=== PATIENT | female | born 1940 | race Two or more races ===

== ENCOUNTER 2023-12-09 12:02 | Inpatient (IN) | payer MEDICARE, MEDICAID ==
[~2023-12-09] VITALS: Ht 162.6 cm; Wt 47.6 kg
[2023-12-09 12:04] VITALS: O2SAT 99
[2023-12-09 12:46] LABS: BASOPHILS % 0.2 % (0.0-2.0); HEMATOCRIT. 47.5 % (36.0-48.0); HEMOGLOBIN. 15.7 g/dL (12.0-16.0); LYMPHOCYTES % 18.4 % (20.0-50.0); MEAN CORPUSCULAR HEMOGLOBIN 27.9 pg (28.0-32.0); MEAN CORPUSCULAR HGB CONC 33.1 g/dL (31.0-37.0); MEAN CORPUSCULAR VOLUME 84.3 fL (81.0-99.0); MEAN PLATELET VOLUME 8.2 fl (7.4-10.4); MONOCYTES % 2.8 % (2.0-8.0); NEUTROPHILS % 78.6 % (40.0-76.0); PLATELET 320 x1000/uL (130-400); RED BLOOD CELL COUNT 5.63 mill/uL (4.2-5.4); RED CELL DISTRIBUTION WIDTH 14.1 % (11.6-14.6); WHITE BLOOD COUNT 9.8 x1000/uL (4.5-11.0)
[2023-12-09 13:00] LABS: ALANINE AMINOTRANSFERASE 18 IU/L (10-49); ALBUMIN 5.4 g/dL (3.2-4.8); ASPARTATE AMINOTRANSFERASE 31 IU/L (<34); BILIRUBIN TOTAL 0.6 mg/dL (0.1-1.0); CALCIUM 11.5 mg/dL (8.7-10.4); CARBON DIOXIDE 23 mEq/L (21-32); CHLORIDE 98 mEq/L (98-107); CREATININE 1.1 mg/dL (0.6-1.0); GLUCOSE 268 mg/dL (70-105); POTASSIUM 3.8 mEq/L (3.5-5.1); PROTEIN TOTAL 8.4 g/dL (6.0-8.3); SODIUM 135 mEq/L (136-145); TROPONIN I HIGH SENSITIVITY 5 ng/L (3.0-34); UREA NITROGEN BLOOD 26 mg/dL (9-23)
[2023-12-09] MEDS: MORPHINE SULFATE 4 MG/ML INJ (FOR IV/IM USE) IV STA (13:50)
[2023-12-09] MEDS: FAMOTIDINE 20MG/2ML VIAL IV STA (13:50)
[2023-12-09] MEDS: SODIUM CHLORIDE 0.9% 500 ML IV ONE ×2 (13:50→20:57)
[2023-12-09] MEDS: ONDANSETRON HCL 4MG/2ML INJ IV STA (13:51)
[2023-12-09 14:57] LABS: PROTHROMBIN TIME 11.6 sec (9.6-11.0)
[2023-12-09 15:03] LABS: TROPONIN I HIGH SENSITIVITY 6 ng/L (3.0-34)
[2023-12-09] MEDS: MORPHINE SULFATE 2 MG/ML CPJ (NOT FOR IM USE) IV ONE (17:10)
[2023-12-09] MEDS: DEXT 5%/0.45% NACL 1000ML 1,000 ML IV SCH (17:21)
[2023-12-09 18:39] LABS: BG BASE EXCESS -13.2 mmol/L (-2.0-2.0); BG CARBOXYHEMOGLOBIN 0.5 % (0.5-1.5); BG DEOXYHEMOGLOBIN 5.3 % (0.0-5.0); BG FRACTION INSPIRED OXYGEN 40; BG HCO3 ACT 14.3 mmol/L (22.0-26.0); BG METHEMOGLOBIN 0.4 % (0.0-1.5); BG OXYGEN SATURATION 94.7 % (92.0-98.5); BG OXYHEMOGLOBIN 93.8 % (94.0-97.0); BG PCO2 38.8 mmHg (35.0-45.0); BG PH 7.185 (7.350-7.450); BG PO2 88.6 mmHg (75.0-100.0); BG SAMPLE SITE RIGHT BRACHIAL; BG TOTAL HEMOGLOBIN 16.5 g/dL (12.0-18.0); BG VENT MODE MASK - SIMPLE
[2023-12-09] MEDS: SODIUM BICARBONATE 8.4% 1 MEQ/ML 50ML SYR IV NR (19:25)
[2023-12-09] MEDS ORDERED: NOREPINEPHRINE 8MG/250ML PMX 250 ML IV ONE (20:30)
[2023-12-09] MEDS: NOREPINEPHRINE 8MG/250ML PMX 250ML IV PRN (20:57)
[2023-12-09] MEDS: MORPHINE SULFATE 2 MG/ML CPJ (NOT FOR IM USE) IV PRN (21:37)
[2023-12-09 23:12] LABS: ALANINE AMINOTRANSFERASE 13 IU/L (10-49); ALBUMIN 3.5 g/dL (3.2-4.8); ASPARTATE AMINOTRANSFERASE 34 IU/L (<34); BILIRUBIN TOTAL 0.3 mg/dL (0.1-1.0); CALCIUM 8.6 mg/dL (8.7-10.4); CARBON DIOXIDE 15 mEq/L (21-32); CHLORIDE 111 mEq/L (98-107); GLUCOSE 216 mg/dL (70-105); POTASSIUM 3.6 mEq/L (3.5-5.1); PROTEIN TOTAL 6.2 g/dL (6.0-8.3); SODIUM 143 mEq/L (136-145); UREA NITROGEN BLOOD 35 mg/dL (9-23)
[2023-12-09 23:13] LABS: CREATININE 1.7 mg/dL (0.6-1.0)
[2023-12-09] MEDS ORDERED: SODIUM CHLORIDE 0.9% 1,000 ML IV SCH (23:30)
[2023-12-09 23:34] LABS: BASOPHILS % 0.2 % (0.0-2.0); EOSINOPHILS % 0.4 % (0.0-5.0); HEMATOCRIT. 49.8 % (36.0-48.0); HEMOGLOBIN. 15.2 g/dL (12.0-16.0); LYMPHOCYTES % 31.9 % (20.0-50.0); MEAN CORPUSCULAR HEMOGLOBIN 27.5 pg (28.0-32.0); MEAN CORPUSCULAR HGB CONC 30.6 g/dL (31.0-37.0); MEAN CORPUSCULAR VOLUME 89.9 fL (81.0-99.0); MONOCYTES % 6.1 % (2.0-8.0); NEUTROPHILS % 61.4 % (40.0-76.0); RED BLOOD CELL COUNT 5.54 mill/uL (4.2-5.4); RED CELL DISTRIBUTION WIDTH 15.3 % (11.6-14.6); WHITE BLOOD COUNT 2.9 x1000/uL (4.5-11.0)
[2023-12-09 23:46] LABS: DIFFERENTIAL COMMENT 1
[2023-12-09] MEDS: PANTOPRAZOLE SODIUM 40 MG/VIAL IV SCH (23:50)
[2023-12-10] VITALS (52 sets, daily range): BP systolic 55–154; BP diastolic 18–98; PULSE 80–125; RESP 15–51; TEMP 92–97.5
[2023-12-10 00:31] LABS: MEAN PLATELET VOLUME 8.5 fl (7.4-10.4); PLATELET 190 x1000/uL (130-400)
[2023-12-10] MEDS: SODIUM BICARBONATE 150 MEQ in SODIUM CHLORIDE 0.45% 1,000 ML IV SCH ×2 (01:30→11:37)
[2023-12-10] MEDS: MORPHINE SULFATE 2 MG/ML CPJ (NOT FOR IM USE) IV PRN (01:43)
[2023-12-10] MEDS ORDERED: MORPHINE SULFATE 2 MG/ML CPJ (NOT FOR IM USE) IV PRN (03:30)
[2023-12-10 04:48] LABS: BASOPHILS % 0.4 % (0.0-2.0); EOSINOPHILS % 1.1 % (0.0-5.0); HEMATOCRIT. 46.9 % (36.0-48.0); HEMOGLOBIN. 14.8 g/dL (12.0-16.0); LYMPHOCYTES % 41.3 % (20.0-50.0); MEAN CORPUSCULAR HEMOGLOBIN 27.6 pg (28.0-32.0); MEAN CORPUSCULAR HGB CONC 31.4 g/dL (31.0-37.0); MEAN CORPUSCULAR VOLUME 87.9 fL (81.0-99.0); MEAN PLATELET VOLUME 8.9 fl (7.4-10.4); MONOCYTES % 8.2 % (2.0-8.0); PLATELET 195 x1000/uL (130-400); RED BLOOD CELL COUNT 5.34 mill/uL (4.2-5.4); RED CELL DISTRIBUTION WIDTH 15.2 % (11.6-14.6); WHITE BLOOD COUNT 2.8 x1000/uL (4.5-11.0)
[2023-12-10 05:05] LABS: CALCIUM 8.5 mg/dL (8.7-10.4); CARBON DIOXIDE 15 mEq/L (21-32); CHLORIDE 113 mEq/L (98-107); CREATININE 1.8 mg/dL (0.6-1.0); GLUCOSE 144 mg/dL (70-105); PHOSPHORUS 3.8 mg/dL (2.5-4.9); POTASSIUM 3.6 mEq/L (3.5-5.1); SODIUM 145 mEq/L (136-145); UREA NITROGEN BLOOD 35 mg/dL (9-23)
[2023-12-10] MEDS ORDERED: MORPHINE SULFATE 4 MG/ML INJ (FOR IV/IM USE) IV PRN (07:00)
[2023-12-10] MEDS: INSULIN LISPRO 100 UNITS/ML SUBCUT SCH (07:32)
[2023-12-10] MEDS: BLOOD SUGAR DIAGNOSTIC STRIP TEST SCH (07:57)
[2023-12-10 08:18] LABS: BG BASE EXCESS -10.4 mmol/L (-2.0-2.0); BG CARBOXYHEMOGLOBIN 0.6 % (0.5-1.5); BG DEOXYHEMOGLOBIN 6.2 % (0.0-5.0); BG FRACTION INSPIRED OXYGEN 100; BG HCO3 ACT 15.5 mmol/L (22.0-26.0); BG METHEMOGLOBIN 0.3 % (0.0-1.5); BG OXYGEN SATURATION 93.7 % (92.0-98.5); BG OXYHEMOGLOBIN 92.9 % (94.0-97.0); BG PCO2 34.6 mmHg (35.0-45.0); BG PH 7.268 (7.350-7.450); BG PO2 74.1 mmHg (75.0-100.0); BG SAMPLE SITE LEFT RADIAL; BG TOTAL HEMOGLOBIN 15.9 g/dL (12.0-18.0); BG VENT MODE MASK - NRB
[2023-12-10] MEDS ORDERED: LIDOCAINE HCL 1% 10 MG/ML 10ML VIAL ONE (08:38)
[2023-12-10] MEDS ORDERED: PHENYLEPHRINE 50MG/250ML PMX 250 ML IV PRN (08:45)
[2023-12-10] MEDS: MIDODRINE HCL 5MG TABLET PO SCH (09:00)
[2023-12-10] MEDS ORDERED: BUPIVACAINE HCL/PF 0.5% (5MG/ML) 10ML ONE (09:51)
[2023-12-10] MEDS: ALBUMIN HUMAN 12.5G/250ML (5%) IV SCH (09:51)
[2023-12-10] MEDS: NOREPINEPHRINE 32 MG in DEXT 5% WATER 218 ML IV PRN (10:13)
[2023-12-10] MEDS: PIPERACILLIN/TAZO 3.375G/50ML 50 ML IV SCH (10:13)
[2023-12-10] MEDS: ONDANSETRON HCL 4MG/2ML INJ IV PRN (10:13)
[2023-12-10] MEDS: VASOPRESSIN 20 UNIT in SODIUM CHLORIDE 0.9% 99 ML IV PRN (10:14)
[2023-12-10] MEDS: SODIUM CHLORIDE 0.9% 500 ML IV SCH (10:15)
[2023-12-10 10:42] LABS: LACTIC ACID 9.2 mmol/L (0.4-2.0)
[2023-12-10] MEDS ORDERED: ALBUMIN HUMAN 12.5G/250ML (5%) IV ONE (11:48)
[2023-12-10] MEDS: PHENYLEPHRINE 50MG/250ML PMX 250 ML IV PRN (13:06)
[2023-12-10] MEDS ORDERED: ETOMIDATE 2MG/ML 10ML VIAL IV ONE (13:17)
[2023-12-10] MEDS ORDERED: ONDANSETRON HCL 4MG/2ML INJ ONE (13:22)
[2023-12-10] MEDS ORDERED: SUCCINYLCHOLINE CHLORIDE 200MG/10ML IV ONE (13:22)
[2023-12-10 14:18] LABS: BG BASE EXCESS -12.9 mmol/L (-2.0-2.0); BG CARBOXYHEMOGLOBIN 0.3 % (0.5-1.5); BG FRACTION INSPIRED OXYGEN 100; BG HCO3 ACT 16.5 mmol/L (22.0-26.0); BG METHEMOGLOBIN 0.3 % (0.0-1.5); BG OXYGEN SATURATION 77.9 % (92.0-98.5); BG OXYHEMOGLOBIN 77.4 % (94.0-97.0); BG PCO2 55.2 mmHg (35.0-45.0); BG PH 7.093 (7.350-7.450); BG PO2 54.3 mmHg (75.0-100.0); BG SAMPLE SITE RIGHT RADIAL; BG TOTAL HEMOGLOBIN 9.7 g/dL (12.0-18.0); BG VENT MODE VENT - AC
[2023-12-10] MEDS: HYDROCORTISONE SOD SUCCINATE 100 MG/2 ML VIAL IV NR (14:41)
[2023-12-10] MEDS: EPINEPHRINE 10 MG in SODIUM CHLORIDE 0.9% 240 ML IV PRN (14:42)
[2023-12-10] MEDS: SODIUM BICARBONATE 8.4% 1 MEQ/ML 50ML SYR IV NR ×2 (15:24→18:18)
[2023-12-10] MEDS: DEXTROSE 50% WATER 50ML SYRINGE IV PRN (16:23)
[2023-12-10 17:14] LABS: BG BASE EXCESS -15.9 mmol/L (-2.0-2.0); BG CARBOXYHEMOGLOBIN 0.3 % (0.5-1.5); BG DEOXYHEMOGLOBIN 21.8 % (0.0-5.0); BG FRACTION INSPIRED OXYGEN 100; BG HCO3 ACT 12.6 mmol/L (22.0-26.0); BG METHEMOGLOBIN 0.4 % (0.0-1.5); BG OXYHEMOGLOBIN 77.5 % (94.0-97.0); BG PCO2 41.7 mmHg (35.0-45.0); BG PH 7.097 (7.350-7.450); BG PO2 57.2 mmHg (75.0-100.0); BG SAMPLE SITE ALINE; BG TOTAL HEMOGLOBIN 7.3 g/dL (12.0-18.0); BG TOTAL RESPIRATORY RATE 36 b/min; BG VENT MODE VENT - AC
[2023-12-10] MEDS: DOPAMINE 800MG PREMIX (DOUBLE) 250 ML IV PRN (17:15)
[2023-12-10] MEDS ORDERED: HYDROCORTISONE SOD SUCCINATE 100 MG/2 ML VIAL IV SCH (22:00)
== END 2023-12-10 22:05 | DRG 871 ==
LOC: ER 12:02 → MICUSO 15:27 → EDBEDREQSVC 15:32 → EDBEDREQ 15:32 → EDBEDREQSVC 21:40
PROVIDERS: ADMIT Internal Medicine; ATTEND Internal Medicine
PROC: 5A12012 Performance of Cardiac Output, Single, Manual (ICD-10-PCS; principal; 2023-12-10)
PROC: 02HV33Z Insertion of Infusion Device into Superior Vena Cava, Percutaneous Approach (ICD-10-PCS; 2023-12-10)
PROC: B548ZZA Ultrasonography of Superior Vena Cava, Guidance (ICD-10-PCS; 2023-12-10)
PROC: 5A0935A Assistance with Respiratory Ventilation, Less than 24 Consecutive Hours, High Flow/Velocity Cannula (ICD-10-PCS; 2023-12-10)
PROC: 5A1935Z Respiratory Ventilation, Less than 24 Consecutive Hours (ICD-10-PCS; 2023-12-10)
PROC: 0BH17EZ Insertion of Endotracheal Airway into Trachea, Via Natural or Artificial Opening (ICD-10-PCS; 2023-12-10)
DX: A41.9 Sepsis, unspecified organism (principal); G93.41 Metabolic encephalopathy; J96.01 Acute respiratory failure with hypoxia; R65.21 Severe sepsis with septic shock; E87.20 Acidosis, unspecified; K56.609 Unspecified intestinal obstruction, unspecified as to partial versus complete obstruction; K55.9 Vascular disorder of intestine, unspecified; N17.9 Acute kidney failure, unspecified; I46.9 Cardiac arrest, cause unspecified; D72.819 Decreased white blood cell count, unspecified; E83.42 Hypomagnesemia; E86.1 Hypovolemia; R47.1 Dysarthria and anarthria; E11.9 Type 2 diabetes mellitus without complications; E78.00 Pure hypercholesterolemia, unspecified; Z87.19 Personal history of other diseases of the digestive system; Z82.41 Family history of sudden cardiac death; Z90.710 Acquired absence of both cervix and uterus
CPT/HCPCS: 31500; 36415; 36573; 36600; 71045; 74018; 74176; 76705; 80048; 80053; 82375; 82805; 82962; 83036; 83605; 83735; 84100; 84145; 84484; 85025; 87077; 87186; 93005; 94002; 99291; C1725; C9113; J0330; J1265; J1720; J2270; J2370; J2405; J2543; J3490; J7040; J7050; J7060; P9041; A4315